=== PATIENT | female | born 1975 | race African-American/Black ===

== ENCOUNTER 2024-01-27 07:02 | Outpatient (CLI) | payer BC, SELFPAY ==
--- NOTE | ~2024-01-27 | MR_ITS ---
MRI of the lumbar spine Clinical History: Radiculopathy Technique: Axial T2-weighted images, and sagittal T1-weighted, T2-weighted, and and T2 fat-sat images were acquired. Findings: There is no fracture or subluxation of the lumbar spine. Vertebral bodies maintain alignmen t. There are type I Modic changes about the L5-S1 disc space due to underlying degenerative disc dise ase. No suspicious marrow signal abnormality seen. At L1-L2, L2-L3, L3-L4, L4-L5, there is no disc bulge or herniation. There are mild facet joint degen erative changes at these levels. No spinal canal stenosis or neural foraminal narrowing at these leve ls. At L5-S1, there is moderate to advanced degenerative disc narrowing. There is minimal disc bulge with mild facet arthropathy. No central canal stenosis. There is moderate to advanced right neural forami nal narrowing, and mild to moderate left neural foraminal narrowing. Paravertebral soft tissues are unremarkable. Impression: Moderate to advanced degenerative spondylosis at L5-S1, as detailed above. Reviewed, dictated and finalized at location . Impression: Moderate to advanced degenerative spondylosis at L5-S1, as detailed above.
== END 2024-01-27 07:03 | disposition home or self-care (01) ==
PROVIDERS: PCP Physician Assistant; Visit Provider Physician Assistant
DX: M47.27 Other spondylosis with radiculopathy, lumbosacral region (principal)
CPT/HCPCS: 72148

== ENCOUNTER 2024-08-05 08:46 | Outpatient (CLI) | payer BC, SELFPAY ==
--- NOTE | ~2024-08-05 | MM_ITS ---
EXAMINATION: MM diagnostic della BI w jovany HISTORY: Breast pain TECHNIQUE: Additional 3-D tomosynthesis images of the breasts were performed and synthetic 2-D images were generated. CAD analysis was submitted and interpreted. COMPARISON: 03/17/2021 BREAST PARENCHYMAL COMPOSITION: Not dense: There are scattered areas of fibroglandular density. FINDINGS: There are no suspicious masses, calcifications or architectural distortion in either breast to suggest malignancy. IMPRESSION: 1. No mammographic evidence for malignancy in either breast. 2. Routine yearly screening mammogram and regular clinical breast examination are recommended. BI-RADS Category 1: Negative Reviewed, dictated and finalized at location A. IMPRESSION: 1. No mammographic evidence for malignancy in either breast. 2. Routine yearly screening mammogram and regular clinical breast examination a re recommended. BI-RADS Category 1: Negative
== END 2024-08-05 08:47 | disposition home or self-care (01) ==
PROVIDERS: PCP Physician Assistant; Visit Provider Physician Assistant
DX: N64.4 Mastodynia (principal)
CPT/HCPCS: 77062; 77066; G0279